=== PATIENT | female | born 1980 | race American Indian/Alaskan Native ===

== ENCOUNTER 2018-03-29 10:10 | Emergency (ER) | payer MEDICAID ==
--- NOTE | 2018-03-29 11:38 | Emergency Department Report ---
ED General Adult HPI - General Chief complaint: Headache Stated complaint: SHORTNESS OF BREATH/HEADACHE Time Seen by Provider: 03/29/18 11:32 Source: patient Mode of arrival: Ambulatory Limitations: No Limitations - History of Present Illness Initial comments: Patient is 37 years old female with no significant past medical history presented to the ER complaining of multiple complaints. No specific including headache and generalized body pain shortness of breath. Patient stated last period was January 30. The patient stated that she stopped breast-feeding 2 months ago. She denied any vaginal bleeding or vaginal discharge. No abdominal pain, chest pain or shortness of breath, nausea or vomiting. - Related Data Allergies Allergy/AdvReac Type Severity Reaction Status Date / Time No Known Allergies Allergy Unverified 03/29/18 10:49 ED Review of Systems ROS: Stated complaint: SHORTNESS OF BREATH/HEADACHE Other details as noted in HPI Comment: All other systems reviewed and negative Constitutional: denies: chills, fever Respiratory: denies: cough, orthopnea, shortness of breath, SOB with exertion, SOB at rest Cardiovascular: denies: chest pain, palpitations, dyspnea on exertion Gastrointestinal: denies: abdominal pain, nausea, vomiting, diarrhea, constipation, hematemesis Musculoskeletal: denies: back pain Neurological: denies: headache, weakness, numbness, paresthesias, confusion ED Past Medical Hx - Past Medical History Previous Medical History?: Yes Hx Hypertension: Yes (WITH . NO MEDS) Additional medical history: VAGINAL DLEIVERY 06-20-2016, 06-08-1006, 2000 - Surgical History Past Surgical History?: No - Social History Smoking Status: Never Smoker Substance Use Type: Alcohol, Non Opiate Pain ED Physical Exam - General Limitations: No Limitations General appearance: alert, in no apparent distress - Head Head exam: Present: atraumatic, normocephalic, normal inspection - Eye Eye exam: Present: normal appearance, PERRL - ENT ENT exam: Present: normal exam, normal orophraynx, mucous membranes moist - Neck Neck exam: Present: normal inspection, full ROM. Absent: tenderness, meningismus, lymphadenopathy, thyromegaly - Respiratory Respiratory exam: Present: normal lung sounds bilaterally. Absent: respiratory distress, wheezes, rales, rhonchi, stridor, chest wall tenderness, accessory muscle use, decreased breath sounds, prolonged expiratory - Cardiovascular Cardiovascular Exam: Present: regular rate, normal rhythm, normal heart sounds - GI/Abdominal GI/Abdominal exam: Present: soft, normal bowel sounds. Absent: distended, tenderness, guarding, rebound, rigid, organomegaly, mass, bruit, pulsatile mass , hernia - Back Exam Back exam: Present: normal inspection, full ROM. Absent: CVA tenderness (L) - Neurological Exam Neurological exam: Present: alert, oriented X3, CN II-XII intact, normal gait - Skin Skin exam: Present: warm, intact, normal color ED Course Vital Signs 03/29/18 03/29/18 10:49 16:54 Temperature 98.7 F Pulse Rate 90 80 Respiratory 18 18 Rate Blood Pressure 143/93 140/83 O2 Sat by Pulse 100 100 Oximetry ED Medical Decision Making - Lab Data Result diagrams: 03/29/18 13:32 03/29/18 13:32 - Radiology Data Radiology results: report reviewed Referring Physician: BRANNON VILLANUEVA Patient Name: MARGARET REYES Date of : 1980 Sex: Female Report Date: 2018-03-29 Report Status: Finalized Findings [facility] [address] [place] [address] Ultrasound Report Signed Patient: MARGARET REYES MR#: [id number] : 1980 Acct:[id number] Age/Sex: 37 / F ADM Date: 03/29/18 Loc: ED Attending Dr: Ordering Physician: BRANNON VILLANUEVA Date of Service: 03/29/18 Procedure(s): US OB transvaginal Accession Number(s): [id number] cc: BRANNON VILLANUEVA FINAL REPORT EXAM: US OB TRANSVAGINAL HISTORY: ABDOMINAL PAIN . LMP 01/30/2018 with estimated age 8 weeks 2 days and EDC 11/06/2018. Quantitative stair beta HCG 74,409 TECHNIQUE: Ultrasound of the pelvis using transabdominal and transvaginal imaging PRIORS: None. FINDINGS: Uterus: Uterus is enlarged in size and normal and homogeneous in echogenicity without focal fibroid formation. The uterus measures 11.1 x 5.8 x 6.8 cm in size. There is a single early viable intrauterine gestation noted. Intrauterine gestation: There is a single intrauterine gestation identified with both a pole and yolk sac. heart rate is monitored at 167 BPM using M-mode doppler. [place]-rump length measurement of 1.7 cm corresponds to estimated age 8 weeks 1 days with EDC 11/07/2018. Ovaries: Both ovaries appear normal in size and echogenicity with normal blood flow bilaterally. The right ovary measures 4.0 x 2.5 x 3.2 cm and the left ovary measures 4.0 x 1.1 x 2.3 cm in size. There is a mildly complex cystic focus in the right ovary measuring 2.2 cm, likely the corpus luteum. Other: There is no evidence for solid adnexal mass is seen. There is no free fluid in the cul-de-sac. IMPRESSION: Single intrauterine viable with an approximate age of 8 weeks 1 days. Transcribed By: [facility] Dictated By: CINTIA THAKUR MD Electronically Authenticated By: CINTIA THAKUR MD Signed Date/Time: 03/29/181702 DD/ 02 TD/TT: 03/29/181702 Critical care attestation.: If time is entered above; I have spent that time in minutes in the direct care of this critically ill patient, excluding procedure time. ED Disposition Clinical Impression: Abdominal pain affecting Disposition: DC-01 TO HOME OR SELFCARE Is pt being admited?: No Condition: Stable Instructions: Abdominal Pain in (ED) Referrals: [facility] [Other] - 3-5 Days
[2018-03-29 12:14] LABS: Bacteria,Urine 1+ /HPF (Negative); Bilirubin,Urine NEG (Negative); Blood,Urine NEG (Negative); Color,Urine Straw (Yellow); Hyaline Casts,Urine 1 /LPF; Mucus,Urine FEW /HPF; Protein,Urine <15 mg/dL mg/dL (Negative); RBC,Urine < 1.0 /HPF (0.0-6.0); Urobilinogen,Urine < 2.0 mg/dL (<2.0); WBC,Urine < 1.0 /HPF (0.0-6.0)
[2018-03-29 12:19] LABS: HCG Qualitative,Urine Positive (Negative)
[2018-03-29 14:03] LABS: Basophils % (Auto) 0.5 % (0.0-1.8); Eosinophils # (Auto) 0.1 K/mm3 (0.0-0.4); Eosinophils % (Auto) 1.3 % (0.0-4.3); Hematocrit 40.4 % (30.3-42.9); Hemoglobin 13.8 gm/dl (10.1-14.3); Lymphocytes # (Auto) 2.1 K/mm3 (1.2-5.4); Mean Corpuscular HGB Conc 34 % (30-34); Mean Corpuscular Hemoglobin 30 pg (28-32); Mean Corpuscular Volume 88 fl (79-97); Mean Platelet Volume 6.8 fl (6-12); Monocytes # (Auto) 0.5 K/mm3 (0.0-0.8); Monocytes % (Auto) 5.4 % (0.0-7.3); Platelet Count 412 K/mm3 (140-440); Red Blood Count 4.59 M/mm3 (3.65-5.03); Red Cell Distribution Width 13.2 % (13.2-15.2)
[2018-03-29 14:24] LABS: Alanine Aminotransferase 13 units/L (7-56); Albumin 4.2 g/dL (3.9-5); BUN/Creatinine Ratio 12; Blood Urea Nitrogen 6 mg/dL (7-17); Calcium 9.1 mg/dL (8.4-10.2); Hemolysis Index 4
[2018-03-29 16:59] VITALS: BP 140/83
--- NOTE | 2018-03-29 17:08 | Ultrasound Report ---
FINAL REPORT EXAM: US OB < = 14 WEEKS FETUS HISTORY: ABDOMINAL PAIN . LMP 01/30/2018 with estimated age 8 weeks 2 days and EDC 11/06/2018. Quantitative stair beta HCG 74,409 TECHNIQUE: Ultrasound of the pelvis using transabdominal and transvaginal imaging PRIORS: None. FINDINGS: Uterus: Uterus is enlarged in size and normal and homogeneous in echogenicity without focal fibroid formation. The uterus measures 11.1 x 5.8 x 6.8 cm in size. There is a single early viable intrauterine gestation noted. Intrauterine gestation: There is a single intrauterine gestation identified with both a pole and yolk sac. heart rate is monitored at 167 BPM using M-mode doppler. [place]-rump length measurement of 1.7 cm corresponds to estimated age 8 weeks 1 days with EDC 11/07/2018. Ovaries: Both ovaries appear normal in size and echogenicity with normal blood flow bilaterally. The right ovary measures 4.0 x 2.5 x 3.2 cm and the left ovary measures 4.0 x 1.1 x 2.3 cm in size. There is a mildly complex cystic focus in the right ovary measuring 2.2 cm, likely the corpus luteum. Other: There is no evidence for solid adnexal mass is seen. There is no free fluid in the cul-de-sac. IMPRESSION: Single intrauterine viable with an approximate age of 8 weeks 1 days.
--- NOTE | 2018-03-29 17:09 | Ultrasound Report ---
FINAL REPORT EXAM: US OB TRANSVAGINAL HISTORY: ABDOMINAL PAIN . LMP 01/30/2018 with estimated age 8 weeks 2 days and EDC 11/06/2018. Quantitative stair beta HCG 74,409 TECHNIQUE: Ultrasound of the pelvis using transabdominal and transvaginal imaging PRIORS: None. FINDINGS: Uterus: Uterus is enlarged in size and normal and homogeneous in echogenicity without focal fibroid formation. The uterus measures 11.1 x 5.8 x 6.8 cm in size. There is a single early viable intrauterine gestation noted. Intrauterine gestation: There is a single intrauterine gestation identified with both a pole and yolk sac. heart rate is monitored at 167 BPM using M-mode doppler. [place]-rump length measurement of 1.7 cm corresponds to estimated age 8 weeks 1 days with EDC 11/07/2018. Ovaries: Both ovaries appear normal in size and echogenicity with normal blood flow bilaterally. The right ovary measures 4.0 x 2.5 x 3.2 cm and the left ovary measures 4.0 x 1.1 x 2.3 cm in size. There is a mildly complex cystic focus in the right ovary measuring 2.2 cm, likely the corpus luteum. Other: There is no evidence for solid adnexal mass is seen. There is no free fluid in the cul-de-sac. IMPRESSION: Single intrauterine viable with an approximate age of 8 weeks 1 days.
== END 2018-03-29 17:32 | disposition home or self-care (01) ==
LOC: ED 10:10
DX: O26.891 Other specified pregnancy related conditions, first trimester (principal); R10.2 Pelvic and perineal pain; O16.1 Unspecified maternal hypertension, first trimester; Z3A.08 8 weeks gestation of pregnancy
CPT/HCPCS: 36415; 76801; 76817; 80053; 81001; 81025; 84702; 85025; 86900; 86901